=== PATIENT | female | born 1950 | race Caucasian/White ===

== ENCOUNTER 2022-03-10 08:33 | Emergency (ER) | payer MEDICARE, MEDICAID ==
[~2022-03-10] VITALS: Ht 157.5 cm; Wt 64.0 kg
[2022-03-10] MEDS ORDERED: LOSA100T32 PO (08:57)
[2022-03-10 09:47] VITALS: BP 154/99
[2022-03-10] MEDS ORDERED: KETOROLAC 30MG/ML VIAL IV STA (09:47)
[2022-03-10] MEDS ORDERED: SODIUM CHLORIDE 0.9% 1,000 ML IV ONE (10:00)
[2022-03-10 11:58] LABS: BASOPHILS % 0.3 % (0.0-2.0); EOSINOPHILS % 1.4 % (0.0-5.0); HEMATOCRIT. 38.7 % (36.0-48.0); HEMOGLOBIN. 13.2 g/dL (12.0-16.0); LYMPHOCYTES % 20.6 % (20.0-50.0); MEAN CORPUSCULAR VOLUME 93.8 fL (81.0-99.0); MEAN PLATELET VOLUME 7.7 fl (7.4-10.4); MONOCYTES % 4.6 % (2.0-8.0); NEUTROPHILS % 73.1 % (40.0-76.0); PLATELET 269 x1000/uL (130-400); RED BLOOD CELL COUNT 4.13 mill/uL (4.2-5.4); RED CELL DISTRIBUTION WIDTH 13.5 % (11.6-14.6)
[2022-03-10 12:08] LABS: CHLORIDE 104 mEq/L (98-107)
[2022-03-10] MEDS ORDERED: AZITHROMYCIN 500MG/250ML 250 ML IV ONE (12:15)
[2022-03-10] MEDS ORDERED: CEFTRIAXONE 1 G PREMIX 50 ML IV ONE (12:15)
[2022-03-10 12:37] LABS: CLARITY URINE CLEAR (CLEAR); COLOR URINE YELLOW (YELLOW); KETONES URINE NEGATIVE (NEGATIVE); LEUKOCYTE ESTERASE URINE NEGATIVE (NEGATIVE); NITRITE URINE NEGATIVE (NEGATIVE); OCCULT BLOOD URINE NEGATIVE (NEGATIVE); PH URINE 7.5 (4.5-8.0); PROTEIN URINE NEGATIVE (NEGATIVE); SPECIFIC GRAVITY URINE 1.012 (1.005-1.030)
[2022-03-10] MEDS ORDERED: ONDANSETRON HCL 4MG/2ML INJ IV ONE (15:00)
== END 2022-03-10 16:43 | disposition left against medical advice (07) ==
LOC: ER 08:33 → CANBEDREQ 22:10
DX: J90 Pleural effusion, not elsewhere classified (principal); I10 Essential (primary) hypertension; Z20.822 Contact with and (suspected) exposure to COVID-19; Z98.890 Other specified postprocedural states
CPT/HCPCS: 36415; 71045; 74176; 80053; 81003; 83605; 83690; 83880; 84484; 85025; 87040; 87086; 87426; 93005; 96361; 96365; 96366; 96368; 96375; 99285; C9803; J0456; J0696; J1885; J2405; J7030